=== PATIENT | female | born 1975 | race Caucasian/White ===

== ENCOUNTER 2018-01-04 06:26 | Emergency (ER) | payer SELFPAY ==
[~2018-01-04] VITALS: Ht 172.7 cm; Wt 92.5 kg
[~2018-01-04 06:26] MED LIST: ALPR0.25 PO; AZIT250T6 PO; CITA40TA12 PO; GABA-585 PO; GABA600T2 PO; GLIM2TAB2 PO; GUAI600T47 PO; HYDR-963 PO; LISI-334 PO; METF10007 PO; METF500T16 PO; PANT40TA5 PO; Promethazine Hcl/Codeine PO
[2018-01-04] MEDS ORDERED: ONDANSETRON PF 4 MG/2 ML VIAL. IV ONE (06:45)
[2018-01-04] MEDS ORDERED: IV NORMAL SALINE 1000ML BAG 1,000 ML IV SCH (06:45)
--- NOTE | 2018-01-04 06:46 | PHYS DOC ---
Past Medical History Past Medical History: Anxiety, Depression, Diabetes-Type II, Hypertension Past Surgical History: Cholecystectomy, Alcohol Use: Rarely Drug Use: None Adult General Chief Complaint Chief Complaint: DIZZY/LIGHT HEADED HPI HPI Patient is a 42-year-old female who presents to the emergency department via EMS. She has been having multiple symptoms on and off for the past 7 days. She states that she has had multiple episodes of "tunnel vision", associated with lightheadedness. She has had some nausea and vomiting and some diarrhea as well. She has not had any pain. She does report having some left arm paresthesias, but has not had any weakness. She does not have a headache, chest pain, abdominal pain. She has not had any black or bloody stools or emesis. She does report having heavy periods at times, but this is nothing new for her. She has a history of anxiety but states that she lost her insurance about 3 months ago, and since that time has been off of her Xanax. There are no alleviating, or exacerbating factors to the patient's symptoms. The patient does admit to being under a lot of stress, secondary to financial issues that are causing her to live with other family members. Review of Systems Review of Systems Constitutional: Denies fever or chills [] Eyes: Denies redness, or eye pain [] HENT: Denies nasal congestion or sore throat [] Respiratory: Denies cough or shortness of breath [] Cardiovascular: The patient denies any shortness of breath, chest pain, palpitations, or orthopnea [] GI: Denies abdominal pain, bloody stools or bloody diarrhea [] : Denies dysuria or hematuria [] Musculoskeletal: Denies back pain or joint pain [] Integument: Denies rash or skin lesions [] Neurologic: Denies headache, focal weakness or sensory changes, except as noted in the history of present illness [] Endocrine: Denies polyuria or polydipsia [] All other systems were reviewed and found to be within normal limits, except as documented in this note. Current Medications Current Medications Current Medications Medications (Trade) Dose Ordered Sig/Hanh Start Time Stop Time Status Last Admin Dose Admin Lorazepam (Ativan) 1 mg 1X ONCE 01/04/18 06:45 01/04/18 06:46 DC 01/04/18 07:36 1 MG Ondansetron HCl (Zofran) 4 mg 1X ONCE 01/04/18 06:45 01/04/18 06:46 DC 01/04/18 07:34 4 MG Sodium Chloride 1,000 ml @ 1,000 mls/hr Q1H 01/04/18 06:45 01/04/18 07:44 DC 01/04/18 07:32 1,000 MLS/HR Allergies Allergies Allergies Coded Allergies Type Severity Reaction Last Updated Verified aspirin Allergy Severe Shortness of Air 02/27/13 Yes ibuprofen Allergy Severe Shortness of Air 02/27/13 Yes Physical Exam Physical Exam PHYSICAL EXAM: CONSTITUTIONAL: Well developed, well nourished HEAD: normocephalic, atraumatic EENT: PERRL, EOMI. Conjunctivae normal color, sclerae non-icteric; moist mucous membranes. NECK: Supple, non-tender; no meningismus. LUNGS: Lungs CTA, breathing even and unlabored. Normal air movement. HEART: Regular rate and rhythm, no murmur CHEST: No deformity; non-tender ABDOMEN: The abdomen is soft, and non-tender, no masses or bruits. EXTREM: Normal ROM; no deformity, no calf tenderness. Normal pulses palpable in all extremities. There is no pedal edema. SKIN: No rash; no diaphoresis NEURO: Alert; normal speech and cognition; CN's grossly intact; strength grossly intact without focal deficit. Sensation is grossly intact. There is no reproducible sensory deficit in the left upper extremity or elsewhere. Finger- nose-finger and heel huertas testing are normal. Visual min are intact by confrontation. NIH stroke scale score is 0. BACK: No CVA TTP. PSYCHIATRIC: The patient exhibits a moderately anxious affect. Current Patient Data Vital Signs Vital Signs Date Time Temp Pulse Resp B/P (MAP) Pulse Ox O2 Delivery O2 Flow Rate FiO2 01/04/18 06:27 98.8 98 26 163/87 (112) 100 Room Air 98.8 Lab Values Laboratory Tests Test 01/04/18 07:03 01/04/18 07:08 01/04/18 07:20 Urine Collection Type Unknown Urine Color Yellow Urine Clarity Clear Urine pH 5.5 Urine Specific [place] 1.010 Urine Protein Negative mg/dL (NEG-TRACE) Urine Glucose (UA) Negative mg/dL (NEG) Urine Ketones (Stick) 15 mg/dL (NEG) Urine Blood Negative (NEG) Urine Nitrite Negative (NEG) Urine Bilirubin Negative (NEG) Urine Urobilinogen Dipstick 0.2 mg/dL (0.2 mg/dL) Urine Leukocyte Esterase Small (NEG) Urine RBC 0 /HPF (0-2) Urine WBC 1-4 /HPF (0-4) Urine Squamous Epithelial Cells Mod /LPF Urine Bacteria Few /HPF (0-FEW) Urine Mucus Mod /LPF POC Urine HCG, Qualitative Hcg negative (Negative) White Blood Count 3.5 x10^3/uL (4.0-11.0) L Red Blood Count 5.01 x10^6/uL (3.50-5.40) Hemoglobin 10.7 g/dL (12.0-15.5) L Hematocrit 34.3 % (36.0-47.0) L Mean Corpuscular Volume 68 fL (79-100) L Mean Corpuscular Hemoglobin 21 pg (25-35) L Mean Corpuscular Hemoglobin Concent 31 g/dL (31-37) Red Cell Distribution Width 18.8 % (11.5-14.5) H Platelet Count 252 x10^3/uL (140-400) Neutrophils (%) (Auto) 59 % (31-73) Lymphocytes (%) (Auto) 34 % (24-48) Monocytes (%) (Auto) 5 % (0-9) Eosinophils (%) (Auto) 2 % (0-3) Basophils (%) (Auto) 1 % (0-3) Neutrophils # (Auto) 2.1 x10^3uL (1.8-7.7) Lymphocytes # (Auto) 1.2 x10^3/uL (1.0-4.8) Monocytes # (Auto) 0.2 x10^3/uL (0.0-1.1) Eosinophils # (Auto) 0.1 x10^3/uL (0.0-0.7) Basophils # (Auto) 0.0 x10^3/uL (0.0-0.2) Platelet Estimate Adequate (ADEQUATE) Hypochromasia Slight Anisocytosis Slight Microcytosis Mod Prothrombin Time 12.1 SEC (11.7-14.0) Prothrombin Time INR 0.9 (0.8-1.1) Sodium Level 140 mmol/L (136-145) Potassium Level 3.7 mmol/L (3.5-5.1) Chloride Level 105 mmol/L (98-107) Carbon Dioxide Level 25 mmol/L (21-32) Anion Gap 10 (6-14) Blood Urea Nitrogen 10 mg/dL (7-20) Creatinine 0.6 mg/dL (0.6-1.0) Estimated GFR (Cockcroft-Gault) 109.1 BUN/Creatinine Ratio 17 (6-20) Glucose Level 192 mg/dL (70-99) H Calcium Level 9.2 mg/dL (8.5-10.1) Magnesium Level 1.5 mg/dL (1.8-2.4) L Total Bilirubin 0.9 mg/dL (0.2-1.0) Aspartate Amino Transferase (AST) 14 U/L (15-37) L Alanine Aminotransferase (ALT) 14 U/L (14-59) Alkaline Phosphatase 105 U/L (46-116) Creatine Kinase 42 U/L (26-192) Creatine Kinase MB (Mass) < 0.5 ng/mL (0.0-3.6) Creatine Kinase MB Relative Index % (0-4) Troponin I Quantitative < 0.017 ng/mL (0.000-0.055) Total Protein 7.5 g/dL (6.4-8.2) Albumin 3.8 g/dL (3.4-5.0) Albumin/Globulin Ratio 1.0 (1.0-1.7) Lipase 216 U/L (73-393) Thyroid Stimulating Hormone (TSH) 1.003 uIU/mL (0.358-3.74) Laboratory Tests 01/04/18 07:20 Laboratory Tests 01/04/18 07:20 EKG EKG [Normal sinus rhythm at a rate of 94 beats for minute, normal axis, normal intervals, there are no acute ischemic ST/T changes. Nonspecific changes are present inferiorly. The patient's EKG is not significantly changed compared to her prior EKGs.] Radiology/Procedures Radiology/Procedures [PROCEDURE: CT HEAD WO CONTRAST CT of the head without contrast, 01/04/2018: HISTORY: Left-sided weakness The ventricles are within normal limits in size. There is no shift of the midline structures. There is no evidence of acute intracranial hemorrhage or mass effect. IMPRESSION: 1. No acute intracranial abnormality is detected. 2. MR scanning would be more sensitive method of further evaluation, if clinically indicated. ] PROCEDURE: PORTABLE CHEST 1V Portable chest, 01/04/2018: HISTORY: Weakness and dizziness Comparison is made to a study from 07/15/2016. The heart size and pulmonary vascularity are normal. No pulmonary infiltrate is seen. There is no evidence of pleural fluid. IMPRESSION: No acute cardiopulmonary abnormality is detected. Course & Med Decision Making Course & Med Decision Making Pertinent Labs and Imaging studies reviewed. (See chart for details) [Patient's hemoglobin is similar to her prior values.] 8:55 AM: The patient's condition remained stable. She is feeling significantly better at this time. She appears much more calm. Her symptoms have improved. She still reports some generalized blurred vision. She has no gross visual acuity deficit. She has not had her eyes checked in quite a while. I discussed the inability to definitively rule out a stroke based on the above testing, although the clinical suspicion for acute ischemic etiology to the patient's symptoms is low. We discussed doing an MRI but the patient does not think her symptoms are due to a stroke, and declined such evaluation at this time. I did discuss the potential risks of undiagnosed stroke, although again, the clinical suspicion is very low. I do believe that the patient's symptoms do have some bearing on her underlying anxiety disorder. She states that her primary care provider no longer practices. She'll be given resources to establish care with a new primary care provider. She states she still has an adequate supply of her diabetes medications. Importance of close follow-up and return precautions were discussed in detail. Dragon Disclaimer Dragon Disclaimer This electronic medical record was generated, in whole or in part, using a voice recognition dictation system. Departure Departure Impression: Primary Impression: Dizziness Additional Impressions: Nausea & vomiting Anxiety Disposition: HOME, SELF-CARE Condition: STABLE Patient Instructions: Anxiety and Panic Attacks, Dizziness, Eye - Blurred Vision, Paresthesia Additional Instructions: Use the resources provided to help establish care with a primary care provider. Scripts Lorazepam (ATIVAN) 1 Mg Tablet 1 MG PO TID PRN for ANXIETY / AGITATION, #15 TAB 0 Refills Prov: BILLY HEADLEY MD 01/04/18 Ondansetron (ZOFRAN ODT) 4 Mg Tab.rapdis 1 TAB SL Q8HRS, #15 TAB Prov: BILLY HEADLEY MD 01/04/18 Problem Qualifiers BILLY HEADLEY MD Jan 04, 2018 06:46
--- NOTE | 2018-01-04 07:22 | EKG ---
[facility] [address] [place] [address] Test Date: 2018-01-04 Test Time: 06:47:32 Pat Name: NICK GORMAN Department: Room: Gender: F Residential Concierge: : 1975 Requested By: BILLY HEADLEY Order Number: [id number] Reading MD: Josh Hammer MD Measurements Intervals [place] Rate: 94 P: 54 MD: 138 QRS: 63 QRSD: 84 T: 10 QT: 360 QTc: 450 Interpretive Statements SINUS RHYTHM Electronically Signed On 01-04-2018 12:30:23 CDT by Josh Hammer MD
[2018-01-04 07:29] LABS: BILIRUBIN,URINE NEGATIVE (NEG); CLARITY,URINE CLEAR; COLOR,URINE YELLOW; NITRITE,URINE NEGATIVE (NEG); PH,URINE 5.5; PROTEIN,URINE NEGATIVE (NEG-TRACE); UROBILINOGEN,URINE 0.2 mg/dL (0.2 mg/dL)
[2018-01-04 07:35] LABS: BASO % 1 % (0-3); EOS # 0.1 x10^3/uL (0.0-0.7); EOS % 2 % (0-3); HEMATOCRIT 34.3 % (36.0-47.0); HEMOGLOBIN 10.7 g/dL (12.0-15.5); LYMPH # 1.2 x10^3/uL (1.0-4.8); LYMPH % 34 % (24-48); MEAN CORPUSCULAR HEMOGLOBIN 21 pg (25-35); MEAN CORPUSCULAR HGB CONC 31 g/dL (31-37); MEAN CORPUSCULAR VOLUME 68 fL (79-100); MONO # 0.2 x10^3/uL (0.0-1.1); MONO % 5 % (0-9); NEUT # 2.1 x10^3uL (1.8-7.7); NEUT % 59 % (31-73); PLATELET COUNT 252 x10^3/uL (140-400); RED BLOOD COUNT 5.01 x10^6/uL (3.50-5.40); RED CELL DISTRIBUTION WIDTH 18.8 % (11.5-14.5); WHITE BLOOD COUNT 3.5 x10^3/uL (4.0-11.0)
[2018-01-04 07:40] LABS: SQUAMOUS EPITHELIAL CELL,UR MOD /LPF
[2018-01-04 07:41] LABS: BACTERIA,URINE FEW /HPF (0-FEW); RBC,URINE 0 /HPF (0-2)
--- NOTE | 2018-01-04 07:41 | RAD ---
Portable chest, 01/04/2018: HISTORY: Weakness and dizziness Comparison is made to a study from 07/15/2016. The heart size and pulmonary vascularity are normal. No pulmonary infiltrate is seen. There is no evidence of pleural fluid. IMPRESSION: No acute cardiopulmonary abnormality is detected. Electronically signed by: Cole Lombardo MD (01/04/2018 7:38 AM) [facility]
[2018-01-04 07:46] LABS: CALCIUM 9.2 mg/dL (8.5-10.1); CREATININE 0.6 mg/dL (0.6-1.0); GFR 109.1; POTASSIUM 3.7 mmol/L (3.5-5.1)
[2018-01-04 07:48] LABS: PROTHROMBIN TIME PATIENT 12.1 SEC (11.7-14.0)
--- NOTE | 2018-01-04 07:49 | RAD ---
CT of the head without contrast, 01/04/2018: HISTORY: Left-sided weakness The ventricles are within normal limits in size. There is no shift of the midline structures. There is no evidence of acute intracranial hemorrhage or mass effect. IMPRESSION: 1. No acute intracranial abnormality is detected. 2. MR scanning would be more sensitive method of further evaluation, if clinically indicated. RS Compliance Statement: One or more of the following individualized dose reduction techniques were utilized for this examination: 1. Automated exposure control 2. Adjustment of the mA and/or kV according to patient size 3. Use of iterative reconstruction technique Electronically signed by: Cole Lombardo MD (01/04/2018 7:46 AM) [facility]
[2018-01-04 07:51] LABS: ALBUMIN 3.8 g/dL (3.4-5.0); MAGNESIUM 1.5 mg/dL (1.8-2.4); TOTAL BILIRUBIN 0.9 mg/dL (0.2-1.0); TOTAL PROTEIN 7.5 g/dL (6.4-8.2)
[2018-01-04 08:01] LABS: CREATINE KINASE 42 U/L (26-192)
[2018-01-04 08:39] LABS: ANISOCYTOSIS SLIGHT; HYPOCHROMIA SLIGHT; MICROCYTOSIS MOD; PLT ESTIMATE ADEQUATE (ADEQUATE)
[2018-01-04 09:00] VITALS: BP 125/71
[2018-01-04] MEDS ORDERED: LORA-434 PO (09:04)
[2018-01-04] MEDS ORDERED: ONDA4TAB10 SL (09:04)
== END 2018-01-04 09:37 | disposition home or self-care (01) ==
LOC: ER 06:26
DX: R42 Dizziness and giddiness (principal); R11.2 Nausea with vomiting, unspecified; F41.9 Anxiety disorder, unspecified; F32.9 Major depressive disorder, single episode, unspecified; E11.9 Type 2 diabetes mellitus without complications; I10 Essential (primary) hypertension; Z90.49 Acquired absence of other specified parts of digestive tract; Z98.890 Other specified postprocedural states; Z88.6 Allergy status to analgesic agent
CPT/HCPCS: 36415; 70450; 71045; 80053; 81001; 81025; 82553; 83690; 83735; 84443; 84484; 85025; 85610; 93005; 96361; 96374; 96375; 99285; J2060; J2405; J7030